=== PATIENT | male | born 1990 | race Caucasian/White ===

== ENCOUNTER 2017-10-24 16:41 | Emergency (ER) | payer OTHER ==
[2017-10-24 16:35] VITALS: O2SAT 100
[2017-10-24] MEDS ORDERED: IOHEXOL 350 MG/ML 10 ML VIAL (for RAD DIAG) IVCONTRAST ONE (16:42)
--- NOTE | 2017-10-24 16:56 | RADRPT ---
EXAM DATE: 10/24/2017 4:54 PM EDT AGE/SEX: 89 years / Male INDICATIONS: Trauma alert, fall off ladder. CLINICAL DATA: This is the patient's initial encounter. Patient reports that signs and symptoms have been present for 1 day and indicates a pain score of 10/10. MEDICAL/SURGICAL HISTORY: None. None. COMPARISON: No prior [place] exams available for comparison. FINDINGS: A single AP view of the chest demonstrates the lungs to be symmetrically aerated without evidence of mass, infiltrate or effusion. The cardiomediastinal contours are unremarkable. Osseous structures a re intact. CONCLUSION: Negative examination. Electronically signed by: Rene Canales MD 10/24/2017 4:54 PM EDT
[2017-10-24 16:58] LABS: BASOPHIL # 0.1 TH/MM3 (0-0.2); BASOPHIL % 0.5 % (0.0-2.0); EOSINOPHIL % 0.3 % (0.0-4.0); HEMATOCRIT 45.6 % (39.0-51.0); HEMOGLOBIN 15.5 GM/DL (13.0-17.0); LYMPH % 13.8 % (9.0-44.0); LYMPHOCYTE # 2.1 TH/MM3 (1.0-4.8); MEAN CORPUSCULAR HEMOGLOBIN 28.7 PG (27.0-34.0); MEAN CORPUSCULAR HGB CONC 34.1 % (32.0-36.0); MEAN PLATELET VOLUME 9.1 FL (7.0-11.0); MONO % 7.8 % (0.0-8.0); MONOCYTE # 1.2 TH/MM3 (0-0.9); NEUT % 77.6 % (16.0-70.0); PLATELET COUNT 261 TH/MM3 (150-450); RED BLOOD COUNT 5.42 MIL/MM3 (4.50-5.90); RED CELL DISTRIBUTION WIDTH 13.6 % (11.6-17.2); WHITE BLOOD COUNT 15.4 TH/MM3 (4.0-11.0)
--- NOTE | 2017-10-24 16:58 | RADRPT ---
EXAM DATE: 10/24/2017 4:55 PM EDT AGE/SEX: 89 years / Male INDICATIONS: Trauma alert, fall from ladder. CLINICAL DATA: This is the patient's initial encounter. Patient reports that signs and symptoms have been present for 1 day and indicates a pain score of 10/10. MEDICAL/SURGICAL HISTORY: None. None. COMPARISON: No prior [place] exams available for comparison. FINDINGS: Examination of the pelvis demonstrates no evidence of fracture or dislocation. Bony mineralization i s normal. There is no widening of the sacroiliac joints. No foreign body is identified. CONCLUSION: Negative examination. Electronically signed by: Rene Canales MD 10/24/2017 4:56 PM EDT
--- NOTE | 2017-10-24 17:06 | RADRPT ---
EXAM DATE: 10/24/2017 5:04 PM EDT AGE/SEX: 89 years / Male INDICATIONS: Trauma, fell off ladder. CLINICAL DATA: This is the patient's initial encounter. Patient reports that signs and symptoms have been present for 1 day and indicates a pain score of Nonresponsive. MEDICAL/SURGICAL HISTORY: Non-responsive. Non-responsive. RADIATION DOSE: 59.09 CTDI (mGy) ; Tabletop exam COMPARISON: No prior [place] exams available for comparison. TECHNIQUE: CT of the head without contrast. Using automated exposure control and adjustment of the mA and/or kV according to patient size, radiation dose was kept as low as reasonably achievable to ob tain optimal diagnostic quality images. FINDINGS: Cerebrum: The ventricles are normal for age. No evidence of midline shift, mass lesion, hemorrhage or acute infarction. No extraaxial fluid collections are seen. Posterior Fossa: The cerebellum and brainstem are intact. The 4th ventricle is midline. The cerebe llopontine angle is unremarkable. Extracranial: The visualized portion of the orbits is intact. Skull: The calvaria is intact. No evidence of skull fracture. CONCLUSION: 1. Negative CT Head non contrast. Electronically signed by: Rene Canales MD 10/24/2017 5:05 PM EDT
--- NOTE | 2017-10-24 17:11 | PD ---
HPI Chief Complaint: fall Time Seen by Provider: 16:43 Travel History International Travel<30 days: No Contact w/Intl Traveler<30days: No History of Present Illness HPI 26-year-old male fell approximately 12 feet off a ladder. He states he is having pain to his left foot and ankle. He did hit his head and had loss of consciousness for maybe about 30 seconds by bystanders. He notes a headache as well. He denies significant other concurrent complaints on initial evaluation. He remembers falling off the ladder but does not remember shortly after that. Quality pain to his foot is sharp. Severity is moderate. Pain is worse with movement. He denies other modifying factors. PFSH Past Medical History Asthma: Yes Past Surgical History Tympanostomy Tube: Yes (As a kid) Social History Alcohol Use: Yes (Occasional) Tobacco Use: No Substance Use: No Allergies-Medications (Allergen,Severity, Reaction): Coded Allergies: No Known Allergies (Unverified , 10/24/17) Review of Systems Except as stated in HPI: all other systems reviewed are Neg Physical Exam Narrative General: 26 y/o patient in no apparent distress Skin: Warm and dry Eyes: Pupils equal, eomi ENT: no septal hematoma NECK: c-collar in place Cardiovascular: Regular rate and rhythm Respiratory: Normal respiratory effort noted, clear to auscultation bilaterally Abdomen: soft, nontender, nondistended Back: No step-offs, midline spine nontender with logroll Extremities: Pain with palpation of left foot and ankle, no lacerations over, neurovascularly intact, no pain with palpation of other joints Neuro: awake, alert, sensation and motor grossly intact Data Data Last Documented VS Orders Orders I-Stat Profile (10/24/17 16:43) I-Stat Creatinine (10/24/17 16:43) Complete Blood Count With Diff (10/24/17 16:43) Prothrombin Time / Inr (Pt) (10/24/17 16:43) Act Partial Throm Time (Ptt) (10/24/17 16:43) Type And Screen (10/24/17 16:43) Chest, Single Ap (10/24/17 16:43) Pelvis, Ap Only (Routine) (10/24/17 16:43) Iv Access Insert/Monitor (10/24/17 16:43) Ecg Monitoring (10/24/17 16:43) Oximetry (10/24/17 16:43) Oxygen Administration (10/24/17 16:43) Ed Poc Ultrasound (10/24/17 16:43) Ct Brain W/O Iv Contrast(Rout) (10/24/17 16:43) Ct Cerv Spine W/O Contrast (10/24/17 16:43) Ct Abd/Pel W Iv Contrast(Rout) (10/24/17 16:43) Ct Thorax/ Chest W Iv Contrast (10/24/17 16:43) Ankle, Limited (Ap&Lat) (10/24/17 16:43) Foot, Limited (2vws) (10/24/17 16:43) Iohexol 350 Inj (Omnipaque 350 Inj) (10/24/17 16:42) Knee, Complete (4vws) (10/24/17 ) Knee, Complete (4vws) (10/24/17 ) Ibuprofen (Motrin) (10/24/17 18:45) Acetamin-Hydrocod 325-5 Mg ([place] 5-325 (10/24/17 19:45) Ed Discharge Order (10/24/17 19:46) Trauma Office Use Only (10/24/17 07:33) Labs Laboratory Tests Test 10/24/17 16:44 White Blood Count 15.4 TH/MM3 Red Blood Count 5.42 MIL/MM3 Hemoglobin 15.5 GM/DL Bedside Hemoglobin 15.3 G/DL Hematocrit 45.6 % Bedside Hematocrit 45.0 % Mean Corpuscular Volume 84.0 FL Mean Corpuscular Hemoglobin 28.7 PG Mean Corpuscular Hemoglobin Concent 34.1 % Red Cell Distribution Width 13.6 % Platelet Count 261 TH/MM3 Mean Platelet Volume 9.1 FL Neutrophils (%) (Auto) 77.6 % Lymphocytes (%) (Auto) 13.8 % Monocytes (%) (Auto) 7.8 % Eosinophils (%) (Auto) 0.3 % Basophils (%) (Auto) 0.5 % Neutrophils # (Auto) 12.0 TH/MM3 Lymphocytes # (Auto) 2.1 TH/MM3 Monocytes # (Auto) 1.2 TH/MM3 Eosinophils # (Auto) 0.0 TH/MM3 Basophils # (Auto) 0.1 TH/MM3 CBC Comment DIFF FINAL Differential Comment Prothrombin Time 10.2 SEC Prothromb Time International Ratio 1.0 RATIO Activated Partial Thromboplast Time 20.8 SEC Bedside Sodium 143 MMOL/L Bedside Potassium 3.8 MMOL/L Bedside Chloride 105 MMOL/L Bedside Blood Urea Nitrogen 14 MG/DL Bedside Creatinine 1.4 MG/DL Bedside Glucose 103 MG/DL [facility] Medical Screen Exam Complete: Yes Emergency Medical Condition: Yes Interpretation(s) Last 24 hours Impressions Pelvis X-Ray 10/24/171642 Signed Impressions: CONCLUSION: Negative examination. Head CT 10/24/171642 Signed Impressions: CONCLUSION: 1. Negative CT Head non contrast. Foot X-Ray 10/24/171642 Signed Impressions: CONCLUSION: No evidence of recent bony injury. Chest X-Ray 10/24/171642 Signed Impressions: CONCLUSION: Negative examination. Chest CT 10/24/171642 Signed Impressions: CONCLUSION: 1. Negative CT Chest with contrast. Cervical Spine CT 10/24/171642 Signed Impressions: CONCLUSION: 1. Negative CT Cervical Spine non contrast. Ankle X-Ray 10/24/171642 Signed Impressions: CONCLUSION: Prominent bony excrescences from the posterior tibial metaphysis, clearly benig n and chronic. No evidence of acute injury. Abdomen/Pelvis CT 10/24/171642 Signed Impressions: CONCLUSION: 1. Negative CT Abdomen and Pelvis with contrast. CBC & BMP Diagram 10/24/17 16:44 Differential Diagnosis Fracture, pneumothorax, bleed Narrative Course Patient arrived as a trauma alert given height of fall and sustained tachycardia. I stats reviewed and within normal limits. Bedside fast without free fluid. Chest x-ray and pelvic x-ray reviewed. Patient went to CT for further workup. ED workup without acute process. On second reevaluation he notes bilateral knee pain. Will add on x-rays and reevaluate patient able to ambulate without new complaints. Family at bedside. Patient denies any new complaints and states that they are feeling better. Patient happy with care, all questions answered. Patient knows that follow up is incumbent on them and to return to the emergency room immediately if new or worsening symptoms develop. Patient given strict return precautions, vitals reviewed and are normal, agrees to further workup as an outpatient. Procedures Procedure Narrative Emergency department E-FAST was performed with patient consent. The curvilinear probe was used in the right upper quadrant/Morison's pouch, suprapubic, left upper quadrant/spleenorenal space, epigastric, parasternal long axis, There was no evidence of peritoneal free fluid, pericardial effusion Diagnosis Diagnosis: Primary Impression: Concussion Qualified Codes: S06.0X1A - Concussion with loss of consciousness of 30 minutes or less, initial encounter Additional Impression: Fall Qualified Codes: W19.XXXA - Unspecified fall, initial encounter Patient Instructions: General Instructions Additional Instructions: return as needed, follow with work comp physician this week, alternate Tylenol and Motrin Med/Other Pt SpecificInfo: No Change to Meds Disposition: 01 DISCHARGE HOME Condition: Stable Debby Feng MD Oct 24, 2017 17:11
[2017-10-24 17:14] LABS: PROTHROMBIN TIME - PATIENT 10.2 SEC (9.8-11.6)
--- NOTE | 2017-10-24 17:20 | RADRPT ---
EXAM DATE: 10/24/2017 5:17 PM EDT AGE/SEX: 89 years / Male INDICATIONS: Trauma, fell off ladder. CLINICAL DATA: This is the patient's initial encounter. Patient reports that signs and symptoms have been present for 1 day and indicates a pain score of Nonresponsive. MEDICAL/SURGICAL HISTORY: Non-responsive. Non-responsive. RADIATION DOSE: 23.49 CTDI (mGy) COMPARISON: No prior [place] exams available for comparison. TECHNIQUE: Contiguous axial images were obtained using helical multirow detector technique. The vol umetric data was post-processed with multiplanar reconstruction in oblique axial, sagittal, and coron al planes. Using automated exposure control and adjustment of the mA and/or kV according to patient s ize, radiation dose was kept as low as reasonably achievable to obtain optimal diagnostic quality precious ges. FINDINGS: Vertebrae: Normal vertebral body height. Alignment: Normal. No subluxation. C2-3: The bony spinal canal is normal in size. No evidence of disc bulge or herniation. The neural foramina are bilaterally patent. C3-4: The bony spinal canal is normal in size. No evidence of disc bulge or herniation. The neural foramina are bilaterally patent. C4-5: The bony spinal canal is normal in size. No evidence of disc bulge or herniation. The neural foramina are bilaterally patent. C5-6: The bony spinal canal is normal in size. No evidence of disc bulge or herniation. The neural foramina are bilaterally patent. C6-7: The bony spinal canal is normal in size. No evidence of disc bulge or herniation. The neural foramina are bilaterally patent. C7-T1: The bony spinal canal is normal in size. No evidence of disc bulge or herniation. The neura l foramina are bilaterally patent. CONCLUSION: 1. Negative CT Cervical Spine non contrast. Electronically signed by: Rene Canales MD 10/24/2017 5:19 PM EDT
[2017-10-24 17:36] VITALS: BP 131/69; PULSE 120; RESP 18; O2SAT 97
--- NOTE | 2017-10-24 17:39 | RADRPT ---
EXAM DATE: 10/24/2017 5:24 PM EDT AGE/SEX: 89 years / Male INDICATIONS: Trauma, fell off ladder. CLINICAL DATA: This is the patient's initial encounter. Patient reports that signs and symptoms have been present for 1 day and indicates a pain score of Nonresponsive. MEDICAL/SURGICAL HISTORY: Non-responsive. Non-responsive. ORAL CONTRAST: No oral contrast ingested. RADIATION DOSE: 20.48 CTDI (mGy) ; Combined studies COMPARISON: No prior [place] exams available for comparison. TECHNIQUE: Multiple contiguous axial images were obtained through the abdomen and pelvis following b olus infusion of 70 ml Omnipaque 350 (iohexol) nonionic water-soluble contrast as a cumulative dose for multiple exams. No oral contrast ingested. Using automated exposure control and adjustment of t he mA and/or kV according to patient size, the radiation dose was kept as low as reasonably achievabl e to obtain optimal diagnostic quality images. FINDINGS: Lower Lungs: The visualized lower lungs are clear. Liver: The liver has a homogeneous density without space-occupying lesion. There is no dilation of th e biliary tree. Spleen: Homogeneous density without enlargement. Pancreas: Unremarkable without mass or calcification. Kidneys: Normal in size and shape. No evidence of mass or hydronephrosis. Adrenal Glands: Unremarkable. Aorta: The aorta and proximal iliac vessels are grossly unremarkable without aneurysmal dilation. Bowel/Mesentery: The bowel loops are grossly unremarkable. The cecum and sigmoid colon have a normal configuration. Abdominal Wall: Intact. Retroperitoneum: No evidence of adenopathy in the retrocrural, para-aortic, or deep pelvic regions. Bladder: Contours are smooth. Reproductive Organs: No abnormal masses or calcifications seen. Inguinal: The inguinal region is unremarkable without evidence of adenopathy. Bony Structures: Unremarkable. CONCLUSION: 1. Negative CT Abdomen and Pelvis with contrast. Electronically signed by: Rene Canales MD 10/24/2017 5:38 PM EDT
--- NOTE | 2017-10-24 17:40 | RADRPT ---
EXAM DATE: 10/24/2017 5:32 PM EDT AGE/SEX: 89 years / Male INDICATIONS: Trauma, fell off ladder. CLINICAL DATA: This is the patient's initial encounter. Patient reports that signs and symptoms have been present for 1 day and indicates a pain score of Nonresponsive. MEDICAL/SURGICAL HISTORY: Non-responsive. Non-responsive. RADIATION DOSE: 20.48 CTDI (mGy) ; Combined studies COMPARISON: No prior [place] exams available for comparison. TECHNIQUE: Multiple contiguous axial images were obtained through the chest during bolus infusion of 70 ml Omnipaque 350 (iohexol) nonionic water-soluble contrast as a cumulative dose for multiple exa ms. Images were obtained in suspended respiration using multiple row detector helical technique. U sing automated exposure control and adjustment of the mA and/or kV according to patient size, radiati on dose was kept as low as reasonably achievable to obtain optimal diagnostic quality images. FINDINGS: Lungs: The lungs are symmetrically aerated. No infiltrates or nodular densities are seen. Mediastinum: There is good visualization of the great vessels of the middle mediastinum. No evidenc e of mediastinal or hilar adenopathy/mass. Pleurae: No evidence of focal thickening or pleural effusion. Axillae: Unremarkable. Bony Structures: Unremarkable. Miscellaneous: The examination was extended to include the upper abdomen, and both adrenal glands ar e normal in size and configuration. CONCLUSION: 1. Negative CT Chest with contrast. Electronically signed by: Rene Canales MD 10/24/2017 5:39 PM EDT
--- NOTE | 2017-10-24 17:47 | RADRPT ---
EXAM DATE: 10/24/2017 5:42 PM EDT AGE/SEX: 89 years / Male INDICATIONS: Left ankle pain after falling from ladder, trauma alert. CLINICAL DATA: This is the patient's initial encounter. Patient reports that signs and symptoms have been present for 1 day and indicates a pain score of 6/10. MEDICAL/SURGICAL HISTORY: None. None. COMPARISON: No prior [place] exams available for comparison. FINDINGS: Bony structures are intact and in normal alignment. Prominent bony excrescence from the posterior tib ial metaphysis. Joints are intact without dislocation or significant arthropathy. Osseous density is normal. Soft tissues are unremarkable. No radiopaque foreign bodies seen. CONCLUSION: Prominent bony excrescences from the posterior tibial metaphysis, clearly benign and chronic. No evid ence of acute injury. Electronically signed by: Rene Canales MD 10/24/2017 5:45 PM EDT
--- NOTE | 2017-10-24 17:47 | RADRPT ---
EXAM DATE: 10/24/2017 5:43 PM EDT AGE/SEX: 89 years / Male INDICATIONS: Left foot pain after falling from ladder, trauma alert. CLINICAL DATA: This is the patient's initial encounter. Patient reports that signs and symptoms have been present for 1 day and indicates a pain score of 4/10. MEDICAL/SURGICAL HISTORY: None. None. COMPARISON: No prior [place] exams available for comparison. FINDINGS: Bony structures are intact and in normal alignment. Osseous density is normal. Soft tissues are unre markable. No radiopaque foreign bodies seen. CONCLUSION: No evidence of recent bony injury. Electronically signed by: Rene Canales MD 10/24/2017 5:46 PM EDT
[2017-10-24] MEDS ORDERED: IBUPROFEN 600 MG TAB PO ONE (18:45)
--- NOTE | 2017-10-24 19:32 | RADRPT ---
EXAM DATE: 10/24/2017 7:20 PM EDT AGE/SEX: 89 years / Male INDICATIONS: Pain on anterior part of left knee. Patient fell rom a ladder today. CLINICAL DATA: This is the patient's initial encounter. Patient reports that signs and symptoms have been present for 1 day and indicates a pain score of 5/10. MEDICAL/SURGICAL HISTORY: None. None. COMPARISON: No prior [place] exams available for comparison. FINDINGS: Bony structures are intact and in normal alignment. Joints are intact without dislocation or signifi cant arthropathy. Osseous density is normal. Soft tissues are unremarkable. No radiopaque foreign bodies seen. CONCLUSION: No evidence of recent bony injury. Electronically signed by: Wily Franklin MD 10/24/2017 7:31 PM EDT
--- NOTE | 2017-10-24 19:32 | RADRPT ---
EXAM DATE: 10/24/2017 7:19 PM EDT AGE/SEX: 89 years / Male INDICATIONS: Pain on anterior and lateral right knee. Patient fell from a ladder today. CLINICAL DATA: This is the patient's initial encounter. Patient reports that signs and symptoms have been present for 1 day and indicates a pain score of 10/10. MEDICAL/SURGICAL HISTORY: None. None. COMPARISON: No prior [place] exams available for comparison. FINDINGS: Bony structures are intact and in normal alignment. Joints are intact without dislocation or signifi cant arthropathy. Osseous density is normal. Soft tissues are unremarkable. No radiopaque foreign bodies seen. CONCLUSION: No evidence of recent bony injury. Electronically signed by: Wily Franklin MD 10/24/2017 7:31 PM EDT
[2017-10-24] MEDS ORDERED: ACETAMINOPHEN/HYDROcodone 325 MG/5 MG TAB PO ONE (19:45)
== END 2017-10-24 20:58 | disposition home or self-care (01) ==
LOC: NEPI 16:41 → EDBD 16:41 → NEPE 20:58
DX: S06.0X1A Concussion with loss of consciousness of 30 minutes or less, initial encounter (principal); M79.672 Pain in left foot; M25.572 Pain in left ankle and joints of left foot; M25.562 Pain in left knee; M25.561 Pain in right knee; W11.XXXA Fall on and from ladder, initial encounter
CPT/HCPCS: 70450; 71045; 71260; 72125; 72170; 73564; 73600; 73620; 74177; 80048; 85025; 85610; 85730; 86850; 86900; 86901; 99285; 99291; Q9967; G0390